=== PATIENT | male | born 2000 ===

== ENCOUNTER 2021-06-30 09:00 | Day surgery (SDC) | payer OTHER ==
[~2021-06-30] VITALS: Ht 180.3 cm; Wt 81.5 kg
[2021-06-30 09:29] VITALS: BP 125/65; PULSE 85; TEMP 98.1
--- NOTE | 2021-06-30 10:27 | NUR ---
1000: PATIENT NOTIFIED [facility] ALANIS THAT HIS GIRLFRIEND HAD TESTED POSITIVE FOR COVID. NOTIFIED DR. VALDEZ AND Vladimir OBRIEN FINISHING MACHINE TENDER OF EXPOSURE. WAS TOLD TO RAPID TEST PATIENT. BEFORE TEST HAD RESULTED NOTIFIED BY Vladimir OBRIEN THAT WE WERE CANCELING THE PROCEDURE. 1015: NOTIFIED PATIENT THAT WE WERE CANCELING PROCEDURE AND ESCORTED PATIENT TO ENTRANCE OF HOSPITAL WHERE RIDE WAS COMING TO PICK HIM UP.
== END 2021-06-30 10:15 | disposition home or self-care (01) ==
LOC: SDCO 09:00
DX: K40.90 Unilateral inguinal hernia, without obstruction or gangrene, not specified as recurrent (principal); Z53.09 Procedure and treatment not carried out because of other contraindication; F17.220 Nicotine dependence, chewing tobacco, uncomplicated; Z20.822 Contact with and (suspected) exposure to COVID-19
CPT/HCPCS: J1885; J2704; J3010

== ENCOUNTER 2021-07-10 07:37 | Day surgery (SDC) | payer OTHER ==
[~2021-07-10] VITALS: Ht 180.3 cm; Wt 81.8 kg
[2021-07-10] MEDS ORDERED: NORCO 325 MG-51 TAB PO (10:52)
[2021-07-10 10:53] VITALS: BP 120/101; PULSE 52; TEMP 97.2
--- NOTE | 2021-07-10 10:53 | NUR ---
The patient arrived back to [facility] from the operating room at this time. The patient appears very drowsy and came back initially with an oral airway in place with JOYCE Mcfadden to stay at the bedside until the airway can be removed. Post operative vital signs were started at this time. The patient's dressing to his left lower abdomoen appears clean, dry and intact. The patient has oxygen in place at 6L per simple mask at this time. Call light is within reach. Will continue to monitor the patient.
[2021-07-10 11:08] VITALS: BP 92/37; PULSE 49
--- NOTE | 2021-07-10 11:08 | NUR ---
The patient continues to appear drowsy at this time. The oral airway was removed per JOYCE Mcfadden. Vital signs appear stable. Will continue to monitor the patient.
[2021-07-10 11:20] VITALS: BP 97/46; PULSE 57
--- NOTE | 2021-07-10 11:21 | NUR ---
The patient appears to be resting comfortably on the cart. He arouses to his name but then drifts back to sleep. Vital signs continue to appear stable. Will continue to monitor the patient.
[2021-07-10 11:38] VITALS: BP 103/86; PULSE 56
--- NOTE | 2021-07-10 11:38 | NUR ---
The patient appears alert and denies any pain or nausea at this time. The patient agrees to try some ice water and applesauce at this time. Vital signs appear stable. Call light is within reach.
[2021-07-10 12:08] VITALS: BP 112/73; PULSE 56
--- NOTE | 2021-07-10 12:15 | NUR ---
The patient has finished his food and drink and appeared to tolerate both well. The patient continues to deny any pain or nausea at this time. He voices a desire to be discharged home.
--- NOTE | 2021-07-10 12:25 | NUR ---
Discharge instructions were reviewed with the patient at this time. He verbalized understanding and has no questions for the nurse at this time. The patient's IV to his right hand was removed and a pressure dressing was applied to the site. The nurse instructed the patient to get dressed and notify the staff when he is ready to be escorted out.
--- NOTE | 2021-07-10 12:35 | NUR ---
The patient was escorted out via wheelchair to a private vehicle by REMA May. The patient's belongings and discharge paperwork were sent with him. The patient's girlfriend, Lucinda, is present to drive him home.
[2021-07-10 12:41] VITALS: BP 124/61; PULSE 62; TEMP 98.1
== END 2021-07-10 12:35 | disposition home or self-care (01) ==
LOC: SDCO 07:37
DX: K40.90 Unilateral inguinal hernia, without obstruction or gangrene, not specified as recurrent (principal)
CPT/HCPCS: J0690; J1100; J1885; J2704; J3010; J7120